=== PATIENT | male | born 1995 | race Caucasian/White ===

== ENCOUNTER 2020-11-29 16:03 | Emergency (ER) | payer OTHER ==
[~2020-11-29] VITALS: Ht 175.3 cm; Wt 70.5 kg
[2020-11-29 18:00] VITALS: BP 128/72
== END 2020-11-29 18:52 | disposition home or self-care (01) ==
LOC: EMS 16:03
DX: L03.317 Cellulitis of buttock (principal); Z90.49 Acquired absence of other specified parts of digestive tract
CPT/HCPCS: 99283; Z7502